=== PATIENT | male | born 1955 ===

== ENCOUNTER 2016-09-26 13:59 | Outpatient (CLI) | payer OTHER ==
--- NOTE | 2016-09-27 09:47 | Magnetic Resonance Report ---
MR LOWER EXTREMITY JOINT LEFT WITH AND WITHOUT CONTRAST History: Fibroma of tendon sheath, pain. Technique: Multisequence, multiplanar MRI before and after 15 cc of Multihance intravenously. Findings: All tendinous structures are within normal limits. The anterior tibial tendons, peroneal tendons, medial tendons, and Achilles tendon demonstrate normal size and signal throughout. There is no evidence for fibroma of tendon sheath. No evidence for a tear, rupture or tenosynovitis. The anterior talofibular ligament is intact. No suggestion of ligamentous injury. The plantar fascia is within normal limits. No mass or focal thickening is appreciated. Tiny plantar spur is noted. Minimal osteoarthritic changes are noted in the midfoot which appear appropriate for this patient's age. No evidence for fracture, bone lesion or erosive joint pathology. The soft tissues are within normal limits. No joint effusion or bursal fluid is detected. No abnormal enhancement following contrast. There appears to be marker placed on the soft tissues of the heel. There is no underlying abnormality or abnormal enhancement. Impression: No abnormality identified.
== END 2016-09-26 14:00 | disposition home or self-care (01) ==
LOC: SPVIMAG 13:59
DX: M19.072 Primary osteoarthritis, left ankle and foot (principal); M25.872 Other specified joint disorders, left ankle and foot
CPT/HCPCS: 73723; A9577